=== PATIENT | female | born 1985 | race Caucasian/White ===

== ENCOUNTER 2016-10-07 12:41 | Day surgery (SDC) | payer OTHER ==
[~2016-10-07] VITALS: Ht 157.5 cm; Wt 57.0 kg
[~2016-10-07 12:41] MED LIST: 0.9% Sodium Chloride 1,000 ML IV PRN; CYCL7.5T27 PO; MELO-259 PO; METF500T4 PO; PNV1TABL9 PO; Sodium Chloride LOK Flush 10 mL Syringe IV PRN; fentaNYL-PF 50 mCg/mL 2 mL Inj IVPUSH PRN
[2016-10-07] MEDS ORDERED: TRAM50TA2 PO (14:03)
[2016-10-07 14:04] VITALS: BP 106/60; PULSE 69; RESP 14; O2SAT 100
[2016-10-07] MEDS ORDERED: 0.9% Sodium Chloride 1,000 ML IV ONE (15:25)
--- NOTE | 2016-10-07 15:27 | PCM.ENDEGD ---
EGD Date of Service: Oct 07, 2016 Physician Joao Moscoso MD Pre Procedure Diagnosis: Abdominal pain Post Procedure Dx & Findings: Bilious gastritis Procedure Esophagogastroduodenoscopy PROCEDURE IN DETAIL: After proper sedation, Olympus video endoscope was inserted into patient's mouth and esophagus was successfully intubated. Scope introduced esophagus. Esophagus showed normal shiny whitish mucosa consistent with squamous cell component. Z line was intact at 40 cm cm from the incisors. The scope further advanced to the stomach. Stomach showed plan to rugae folds redness and edema consistent with gastritis. Gastritis was diffuse. Bilious material noted. Cardia fundus body antrum pylorus were all visualized. Retroflexion was done. Stomach was easily inflated and deflatable using air. Scope further events to the distal duodenum. Duodenum revealed normal villous structures with normal appearing folds without any mass ulcer erosion. Impression Bilious gastritis Recommendation Await biopsy Prilosec 20 once a day If this does not work consider Carafate Presedation Assessment Risks and Benefits Informed consent was obtained from the patient after all risks and benefits including but not limited to drug reaction, infection, pain, bleeding, perforation, as well as alternatives were discussed. Patient monitoring Continuous pulse oximetry, cardiac monitoring, blood pressure monitoring, IV access, and oxygen at 2L per nasal cannula. Periprocedural Fentanyl: Fentanyl 150mcg Incrementally Midazolam: Midazolam 7mg Incrementally Complications There were no periprocedural complications identified. Post Procedure Plan Post Procedure Recommendations 1. Restrict activities today. 2. Resume normal activities in the morning. 3. Resume medications. 4. GERD behavioral modification: - Avoid fatty, acidic, spicy, large meals - Do not lie down after meals - Do not eat or drink anything for at least 2 1/2 hours before going to bed at night - Discontinue tobacco and alcohol - Decrease or avoid caffeine - Avoid chocolate and mints - Decrease weight - Avoid aspirin and non steroidal anti-inflammatory agents (NSAID) such as Aleve, Advil, Mobic, Naproxen, Ibuprofen, etc 5. Add proton pump inhibitor. Take 30 minutes before 1st meal of the day. 6. Patient informed of normal post procedure side effects as bloating, drowsiness, blood streaking in the stool 7. If gastric biopsy reveal H.pylori, continue with appropriate treatment 8. If small bowel biopsy reveals celiac, continue with appropriate treatment 9. Please don't hesitate to call me with any questions Joao Moscoso MD Oct 07, 2016 15:26
[2016-10-07 15:33] VITALS: BP 108/63; PULSE 88; RESP 16; O2SAT 95
[2016-10-07 15:50] VITALS: BP 108/63; PULSE 75; RESP 14; O2SAT 98
[2016-10-07 15:53] VITALS: BP 108/63; PULSE 96; RESP 16; O2SAT 100
--- NOTE | 2016-10-09 13:19 | PATH ---
SURGICAL PATHOLOGY Attending Physician:Joao Moscoso M.D. CASE STATUS: Signed Out PATIENT NAME: MERCY MODI PID: [id number] : 1985 DATE COLLECTED:10/07/2016 00:00 SPECIMEN: Gastric, Biopsy CLINICAL HISTORY: 1). GASTRIC BIOPSY FINAL DIAGNOSIS: 1.GASTRIC BIOPSY: DIFFUSE MILD CHRONIC GASTRITIS INVOLVING ANTRAL MUCOSA. Negative for evidence of Helicobacter. Negative for intestinal metaplasia. Negative for dysplasia and malignancy. ICD10 code K29.70 GROSS DESCRIPTION: The specimen is received in one formalin filled container labeled with the patient's name, sublabeled "gastric" and consists of 2 portions of tissue which aggregate to 0.3 x 0.3 x 0.2 CM. The specimen is entirely submitted in one cassette. 10/08/2016 [facility] MICRO DESCRIPTION: See diagnosis. ICD-9 CODES: CPT CODES: 1: 47763 Electronically Signed Out Mario Hightower MD [facility] Pathology [facility] [address], [place] [address] Technical component performed at [facility], [facility] [address], [place], [address]
== END 2016-10-07 23:59 | disposition home or self-care (01) ==
LOC: END 12:41
PROVIDERS: ATTEND Internal Medicine
DX: K29.50 Unspecified chronic gastritis without bleeding (principal); M79.1 Myalgia; K21.9 Gastro-esophageal reflux disease without esophagitis; E11.9 Type 2 diabetes mellitus without complications; F17.210 Nicotine dependence, cigarettes, uncomplicated; Z79.899 Other long term (current) drug therapy